=== PATIENT | female | born 1990 | race Caucasian/White ===

== ENCOUNTER 2018-09-02 08:45 | Emergency (ER) | payer SELFPAY | END 2018-09-02 09:44 | disposition home or self-care (01) | LOC: NAV ERS 08:45 | DX: M54.5 Low back pain (principal); F41.9 Anxiety disorder, unspecified; F43.10 Post-traumatic stress disorder, unspecified; Z79.899 Other long term (current) drug therapy; F17.210 Nicotine dependence, cigarettes, uncomplicated | CPT/HCPCS: 99406 ==

== ENCOUNTER 2019-12-17 11:51 | Emergency (ER) | payer BC, SELFPAY | END 2019-12-17 12:20 | disposition home or self-care (01) | LOC: NAV ERS 11:51 | DX: J06.9 Acute upper respiratory infection, unspecified (principal); B34.9 Viral infection, unspecified; J45.909 Unspecified asthma, uncomplicated; F41.9 Anxiety disorder, unspecified; F32.9 Major depressive disorder, single episode, unspecified; F43.10 Post-traumatic stress disorder, unspecified; F17.210 Nicotine dependence, cigarettes, uncomplicated; Z79.899 Other long term (current) drug therapy | CPT/HCPCS: 99283 ==

== ENCOUNTER 2022-04-22 20:27 | Emergency (ER) | payer BC, SELFPAY | END 2022-04-22 20:49 | disposition home or self-care (01) | LOC: NAV ERS 20:27 | DX: U07.1 COVID-19 (principal); F17.210 Nicotine dependence, cigarettes, uncomplicated | CPT/HCPCS: 99283 ==

== ENCOUNTER 2024-08-24 12:41 | Emergency (ER) | payer SELFPAY | END 2024-08-24 13:15 | disposition home or self-care (01) | LOC: NAV ERS 12:41 | DX: S39.012A Strain of muscle, fascia and tendon of lower back, initial encounter (principal); R03.0 Elevated blood-pressure reading, without diagnosis of hypertension; F17.210 Nicotine dependence, cigarettes, uncomplicated; W01.0XXA Fall on same level from slipping, tripping and stumbling without subsequent striking against object, initial encounter | CPT/HCPCS: 99283 ==

== ENCOUNTER 2024-10-31 11:04 | Emergency (ER) | payer OTHER, SELFPAY ==
[2024-10-31] MEDS ORDERED: Acetaminophen 325 MG TAB ONE (11:49)
== END 2024-10-31 11:58 | disposition home or self-care (01) ==
LOC: NAV ERS 11:04
DX: G89.29 Other chronic pain (principal); M25.572 Pain in left ankle and joints of left foot; M54.50 Low back pain, unspecified; F17.210 Nicotine dependence, cigarettes, uncomplicated
CPT/HCPCS: 99283